=== PATIENT | female | born 2000 | race Caucasian/White ===

== ENCOUNTER 2020-02-04 12:45 | Inpatient (IN) | payer BC ==
[2020-02-04] MEDS ORDERED: ELECTROLYTE-148 SOLN 500 ML IV ONE (13:00)
[2020-02-04 13:29] VITALS: BMI 32.1
[2020-02-04] MEDS ORDERED: OXYTOCIN 30 UNITS in 0.9% NS 30 UNIT/500 ML INFUS.BAG IVPB ONE (13:31)
[2020-02-04 13:47] LABS: BASO % 0.5 % (0-2.0); EOS % 1.2 % (0-4.5); HEMATOCRIT 35.1 % (32.4-45.2); HEMOGLOBIN 11.7 GM/dL (10.7-15.3); LYMPH % 19.5 % (8-40); MCHC 33.3 g/dl (32.0-36.0); MEAN CELL VOLUME 84.3 fl (80-96); MEAN PLT VOLUME 10.2 fl (7.5-11.1); MONO % 5.4 % (3.8-10.2); NEUT % 73.4 % (42.8-82.8); PLATELET COUNT 110 K/MM3 (134-434); RBC 4.17 M/mm3 (3.60-5.2); RDW 15.3 % (11.6-15.6); WHITE BLOOD COUNT 8.4 K/mm3 (4.0-10.0)
[2020-02-04 13:54] LABS: INR 0.97 (0.83-1.09); PROTHROMBIN TIME (PATIENT) 11.7 SEC (9.7-13.0)
[2020-02-04] MEDS: ELECTROLYTE-148 SOLN 1,000 ML IV SCH ×2 (14:00→18:00)
[2020-02-04 14:05] LABS: CALCIUM 8.5 mg/dL (8.5-10.1)
[2020-02-04 14:06] LABS: BLOOD UREA NITROGEN 8.2 mg/dL (7-18)
[2020-02-04 14:09] LABS: CREATININE 0.5 mg/dL (0.55-1.3)
[2020-02-04] MEDS ORDERED: OXYTOCIN 30 UNITS in 0.9% NS 30 UNIT/500 ML INFUS.BAG IVPB SCH (14:30)
[2020-02-04] MEDS ORDERED: FENTANYL/BUPIVACAINE/NS/PF - PCEA - 50 ML DISP.SYRIN EP ONE (18:12)
[2020-02-04] MEDS ORDERED: PCA PUMP NR ONE (18:12)
[2020-02-04] MEDS ORDERED: NALOXONE HCL 0.4 MG/ML VIAL IVPUSH PRN (18:46)
[2020-02-04] MEDS ORDERED: LIDOCAINE HCL 1% PRESERVATIVE FREE - 30ML VIAL ONE (18:57)
[2020-02-04] MEDS ORDERED: OXYTOCIN 20 UNITS in 0.9% NS 20 UNIT/1,000 ML INFUS.BAG IV ONE (18:58)
[2020-02-04] MEDS ORDERED: FENTANYL/BUPIVACAINE/NS/PF - PCEA - 50 ML DISP.SYRIN EP SCH (19:00)
[2020-02-04] MEDS ORDERED: WITCH HAZEL 50% (TUCKS) 40 PAD/JAR PAD TP PRN (20:41)
[2020-02-04] MEDS ORDERED: BENZOCAINE 28 GM HEMORRHOIDAL OINTMENT TP PRN (20:41)
[2020-02-04] MEDS ORDERED: ACETAMINOPHEN 325 MG TABLET (FP) PO PRN (20:41)
[2020-02-04] MEDS ORDERED: BISACODYL 10 MG SUPP.RECT RC PRN (20:41)
[2020-02-04] MEDS ORDERED: METHYLERGONOVINE MALEATE 0.2 MG/1 ML AMP IM PRN (20:41)
[2020-02-04] MEDS ORDERED: BENZOCAINE 20% 57 GM BOTTLE TP PRN (20:41)
[2020-02-04] MEDS ORDERED: OXYTOCIN 20 UNITS in 0.9% NS 1000 ML INFUS.BAG IV ONE (20:43)
[2020-02-04] MEDS ORDERED: IBUPROFEN 600 MG TABLET (FP) PO ONE (21:29)
[2020-02-04] MEDS ORDERED: ACETAMINOPHEN 325 MG TABLET (FP) ONE (21:29)
[2020-02-04] MEDS ORDERED: OXYTOCIN 20 UNITS in 0.9% NS 20 UNIT/1,000 ML INFUS.BAG IV SCH (22:45)
[2020-02-05] MEDS ORDERED: FLU VACCINE (FLULAVAL) PF 60 MCG/0.5 ML SYRINGE 2020-2021 IM ONE (10:00)
[2020-02-05 10:06] LABS: BASO % 0.2 % (0-2.0); EOS % 1.1 % (0-4.5); HEMATOCRIT 30.3 % (32.4-45.2); LYMPH % 18.8 % (8-40); MCH 27.7 pg (25.7-33.7); MCHC 33.1 g/dl (32.0-36.0); MEAN CELL VOLUME 83.8 fl (80-96); MEAN PLT VOLUME 9.9 fl (7.5-11.1); MONO % 5.4 % (3.8-10.2); NEUT % 74.5 % (42.8-82.8); PLATELET COUNT 108 K/MM3 (134-434); RBC 3.62 M/mm3 (3.60-5.2); RDW 15.2 % (11.6-15.6); WHITE BLOOD COUNT 12.8 K/mm3 (4.0-10.0)
[2020-02-05] MEDS: IBUPROFEN 600 MG TABLET (FP) PO PRN (10:22)
[2020-02-05] MEDS ORDERED: SENNOSIDES/DOCUSATE COMBO (SENNA PLUS) TABLET (UD) PO PRN (22:00)
[2020-02-06] MEDS: IBUPROFEN 600 MG TABLET (FP) PO PRN (08:27)
[2020-02-06 09:14] VITALS: BP 100/66; PULSE 83; TEMP 98.3
== END 2020-02-06 12:12 | disposition home or self-care (01) | DRG 807 ==
LOC: JLDR 12:45 → J3W 21:40
PROVIDERS: ADMIT Specialist; ATTEND Specialist
PROC: 10D17Z9 Manual Extraction of Products of Conception, Retained, Via Natural or Artificial Opening (ICD-10-PCS; principal; 2020-02-04)
PROC: 10E0XZZ Delivery of Products of Conception, External Approach (ICD-10-PCS; 2020-02-04)
PROC: 10907ZC Drainage of Amniotic Fluid, Therapeutic from Products of Conception, Via Natural or Artificial Opening (ICD-10-PCS; 2020-02-04)
DX: O80 Encounter for full-term uncomplicated delivery (principal); Z37.0 Single live birth; O73.0 Retained placenta without hemorrhage; Z3A.39 39 weeks gestation of pregnancy
CPT/HCPCS: 36415; 59409; 80048; 85025; 85610; 85730; 86780; 86850; 86900; 86901; G0008; Q2036

== ENCOUNTER 2022-04-16 23:35 | Emergency (ER) | payer BC ==
[2022-04-16 23:49] VITALS: BP 112/69; PULSE 89; RESP 17; TEMP 100; BMI 33.6
[2022-04-17] MEDS ORDERED: DEXAMETHASONE SOD PHOSPHATE 10 MG/1 ML VIAL IM ONE (02:03)
[2022-04-17] MEDS ORDERED: DEXAMETHASONE SOD PHOSPHATE 10 MG/1 ML VIAL ONE (02:05)
== END 2022-04-17 02:18 | disposition home or self-care (01) ==
LOC: JER 23:35
PROC: 3E0233Z Introduction of Anti-inflammatory into Muscle, Percutaneous Approach (ICD-10-PCS; principal; 2022-04-16)
DX: U07.1 COVID-19 (principal)
CPT/HCPCS: 0241U-QW; 99284-25; J1100

== ENCOUNTER 2023-04-16 09:46 | Emergency (ER) | payer BC ==
[2023-04-16 09:52] VITALS: BP 112/73; PULSE 86; RESP 18; TEMP 98.3; BMI 35.0
== END 2023-04-16 13:25 | disposition home or self-care (01) ==
LOC: JER 09:46
DX: J02.9 Acute pharyngitis, unspecified (principal); R50.9 Fever, unspecified; R05.9 Cough, unspecified; M79.10 Myalgia, unspecified site; R11.0 Nausea; U07.1 COVID-19
CPT/HCPCS: 87635; 99283-25

== ENCOUNTER 2023-04-30 01:49 | Emergency (ER) | payer BC ==
[2023-04-30 01:55] VITALS: TEMP 98.4; BMI 33.6
[2023-04-30] MEDS ORDERED: MAGNESIUM SULF 50% (8.12 MEQ/2 ML-1 GM VIAL) IVPB ONE (02:39)
[2023-04-30] MEDS ORDERED: methylPREDNISolone NA SUCC 125 MG/2 ML VIAL IVPUSH ONE (02:39)
[2023-04-30] MEDS ORDERED: ALBUTEROL SO4 2.5/IPRATROPIUM 0.5 INH SOL 3 ML VIAL.NEB. NEB ONE (02:49)
[2023-04-30] MEDS ORDERED: MAGNESIUM SULFATE IN WATER 2 GM/50 ML IVPB IVPB ONE (02:49)
[2023-04-30] MEDS ORDERED: methylPREDNISolone NA SUCC 125 MG/2 ML VIAL ONE (02:49)
[2023-04-30] MEDS: ALBUTEROL SO4 2.5/IPRATROPIUM 0.5 INH SOL 3 ML VIAL.NEB. NEB SCH (03:05)
[2023-04-30 03:14] LABS: BASO % 0.7 % (0-2.0); HEMATOCRIT 40.8 % (32.4-45.2); HEMOGLOBIN 13.3 GM/dL (10.7-15.3); LYMPH % 26.6 % (8-40); MCH 24.9 pg (25.7-33.7); MCHC 32.6 g/dl (32.0-36.0); MEAN CELL VOLUME 76.3 fl (80-96); MEAN PLT VOLUME 8.9 fl (7.5-11.1); MONO % 6.6 % (3.8-10.2); NEUT % 53.1 % (42.8-82.8); PLATELET COUNT 231 10^3/uL (134-434); RBC 5.35 M/mm3 (3.60-5.2); RDW 15.5 % (11.6-15.6); WHITE BLOOD COUNT 8.3 K/mm3 (4.0-10.0)
[2023-04-30 03:31] LABS: POTASSIUM 4.2 mmol/L (3.5-5.1)
[2023-04-30 03:33] LABS: ALBUMIN 3.5 g/dl (3.4-5.0); CALCIUM 8.6 mg/dL (8.5-10.1)
[2023-04-30 03:34] LABS: BLOOD UREA NITROGEN 14.7 mg/dL (7-18)
[2023-04-30 03:37] LABS: CREATININE 0.7 mg/dL (0.55-1.3)
[2023-04-30 03:38] LABS: BILIRUBIN,TOTAL 0.3 mg/dL (0.2-1); TOT PROT 7.7 g/dl (6.4-8.2)
[2023-04-30 04:33] VITALS: BP 114/86; PULSE 92; RESP 20
== END 2023-04-30 04:33 | disposition home or self-care (01) ==
LOC: JER 01:49
PROC: 3E033GC Introduction of Other Therapeutic Substance into Peripheral Vein, Percutaneous Approach (ICD-10-PCS; principal; 2023-04-30)
PROC: 3E033GC Introduction of Other Therapeutic Substance into Peripheral Vein, Percutaneous Approach (ICD-10-PCS; 2023-04-30)
PROC: 3E0F7GC Introduction of Other Therapeutic Substance into Respiratory Tract, Via Natural or Artificial Opening (ICD-10-PCS; 2023-04-30)
DX: U07.1 COVID-19 (principal); J45.909 Unspecified asthma, uncomplicated; R05.9 Cough, unspecified; R06.02 Shortness of breath
CPT/HCPCS: 0241U-QW; 36415; 80053; 84703; 85025; 99284-25